=== PATIENT | female | born 1950 | race Caucasian/White ===

== ENCOUNTER 2016-05-01 08:42 | Outpatient (CLI) | payer OTHER ==
[~2016-05-01 08:42] MED LIST: ASPIRIN ENTERIC81 M1 PO; BENADRYL25 MG PO; HYDROXYZINE HCL25 MG PO; METOPROLOL SUCC50 MG PO; [UNRECOGNIZED DRUG - OTHER] PO
--- NOTE | 2016-05-01 13:04 | DIAGNOSTIC IMAGING REPORT ---
PROCEDURE: CT THORAX WITHOUT CONTRAST INDICATION: SARCOIDOSIS TECHNIQUE: Noncontrast axial images were obtained of the chest with coronal and sagittal reformations. Axial high-resolution CT imaging was performed at 10 cm intervals through the chest. COMPARISON: CT chest 08/25/2008, 06/30/2009. Soft tissue neck CT 03/01/2016 FINDINGS: The thyroid gland is stable with a left lobe demonstrating a punctate coarse calcification. There has been interval resolution of shoddy superior mediastinal adenopathy and there is no evidence of hilar adenopathy. No axillary or supraclavicular adenopathy. Mild mitral annular calcification, progressed since the previous study. Normal sized heart without effusion. Normal esophagus and airway. There has been interval development of scattered geographic hazy opacities, involving both upper and lower lobes bilaterally resulting in a mosaic attenuation appearance. A small patchy alveolar opacity previously seen in the left upper lobe apex in 2009 has become a thin-walled cyst measuring 11 mm. Patchy, irregular subpleural opacity previously seen in the posterolateral right upper lobe has decreased. There has been interval enlargement in multiple parenchymal cysts with defined newman. The largest is in the right middle lobe and measures 2.4 cm. Two patchy left upper lobe lung nodules previously seen in the 06/30/2009 study (series 2 image 13, and 21) have resolved. No suspicious nodules or masses. No significant interstitial thickening, or fibrotic changes. No bronchiectasis or peribronchial thickening. No pleural effusion. Degenerative endplate spurring present along the right aspect of the lower thoracic spine. Cholecystectomy changes. No liver or splenic calcifications. IMPRESSION: 1. Interval resolution of previously seen lung nodules. No suspicious lung nodule or mass. 2. Development and enlargement of multiple bilateral thin-walled parenchymal cysts which can be seen in the setting of sarcoidosis. Differential diagnosis includes Langerhans cell histiocytosis, less likely lymphangioleiomyomatosis. 3. Interval resolution of mediastinal and hilar adenopathy. 4. Development of diffuse and bilateral mosaic parenchymal attenuation may indicate chronic thromboembolic disease, or small airway obstruction.
== END 2016-05-01 23:00 ==
LOC: CT SRH 08:42
DX: D86.9 Sarcoidosis, unspecified (principal); R91.8 Other nonspecific abnormal finding of lung field

== ENCOUNTER 2016-09-23 09:56 | Outpatient (CLI) | payer OTHER ==
--- NOTE | 2016-09-23 14:12 | DIAGNOSTIC IMAGING REPORT ---
PROCEDURE: MG BILATERAL SCREENING W/CAD INDICATION: SCREENING TECHNIQUE: Bilateral CC and MLO digital views. COMPARISON: Compared to prior studies from [facility] on 01/21/2012, 02/22/2005 and 02/20/2004. FINDINGS: Computer-aided detection applied. Moderately dense and nodular with a few dystrophic and micro calcifications. No change. IMPRESSION: 1. Negative mammogram. RESULT CODE: 1- Negative. A. A negative report should not delay biopsy if a dominant or clinically suspicious mass is present. 10-15% of cancers are not identified by x-ray. B. A negative report may reinforce clinical impression. C. Adenosis and dense breasts may obscure an underlying neoplasm. D. False positive reports average 6-10%. E.. A yearly screening mammogram is recommended. A reminder letter will be scheduled.
== END 2016-09-23 23:00 ==
LOC: MAM SRH 09:56
DX: Z12.31 Encounter for screening mammogram for malignant neoplasm of breast (principal)